=== PATIENT | female | born 2000 | race Caucasian/White ===

== ENCOUNTER 2023-04-17 08:31 | Outpatient (REF) | payer OTHER, SELFPAY ==
--- NOTE | ~2023-04-17 | US_ITS ---
EXAMINATION: US PELVIS CLINICAL INFORMATION: Post coital spotting. LMP about 10 days ago. COMPARISON: None available. TECHNIQUE: Ultrasound of the pelvis is performed using both transabdominal and transvaginal transducers along with Doppler. Transvaginal imaging is performed due to inadequate visualization transabdominally. FINDINGS: Anteverted uterus measuring 8 x 3 x 3.7 cm. No uterine lesion. Endometrium measures 0.2 cm in thickness without discrete abnormality. Left ovary was only visualized transabdominally Normal sonographic appearance of the ovaries with preserved flow at the moment of this examination. The right ovary measures 2.3 x 1.2 x 2.2 cm (2.9 mL) and the left ova measures ry 2.1 x 1.5 x 1.8 cm (2.9 mL). No adnexal mass. No free fluid. US/US pelvic and transvaginal IMPRESSION: No acute sonographic abnormalities.
== END 2023-04-17 08:32 | disposition home or self-care (01) ==
LOC: HO.UMASIMG 08:31
PROVIDERS: Visit Provider Nurse Practitioner Women's Health
DX: N93.0 Postcoital and contact bleeding (principal); N94.12 Deep dyspareunia
CPT/HCPCS: 76830; 76856